=== PATIENT | female | born 1975 | race Caucasian/White ===

== ENCOUNTER 2016-09-03 10:32 | Emergency (ER) | payer BC ==
[2016-09-03 10:40] VITALS: BP 116/72
--- NOTE | 2016-09-03 10:51 | UC ---
Eye Complaint HPI - HPI Summary HPI Summary: patient has had an itchy red eye for the past week, she had been using allergy drops and medication without relief. left eye is goopy - History of Current Complaint Chief Complaint: UCEye Stated Complaint: EYE COMPLAINT,ALLERGIES Time Seen by Provider: 09/03/16 10:38 Hx Obtained From: Patient Hx Last Menstrual Period: 08/09/16 ?: No Onset/Duration: Sudden Onset, Lasting Weeks Timing: Constant Severity Initially: Mild Severity Currently: Moderate Location of Injury: Conjunctiva, Sclera Character: Foreign Body Sensation Associated Signs And Symptoms: Positive: Drainage (Purulent) - Allergies/Home Medications Allergies/Adverse Reactions: Allergies Allergy/AdvReac Type Severity Reaction Status Date / Time Phenobarbital AdvReac See Comment Verified 09/03/16 10:50 Sulfa Antibiotics AdvReac See Comment Verified 09/03/16 10:50 PMH/Surg Hx/FS Hx/Imm Hx - Surgical History Surgical History: None - Family History Known Family History: Positive: Hypertension - Social History Alcohol Use: Occasionally Substance Use Type: None Smoking Status (MU): Never Smoked Tobacco Review of Systems Constitutional: Negative Skin: Negative Eyes: Drainage, Eye Redness ENT: Negative Respiratory: Negative Cardiovascular: Negative Gastrointestinal: Negative Genitourinary: Negative Motor: Negative Neurovascular: Negative Musculoskeletal: Negative Neurological: Negative Psychological: Negative All Other Systems Reviewed And Are Negative: Yes Physical Exam Triage Information Reviewed: Yes Appearance: Well-Nourished, Ill-Appearing, Pain Distress Vital Signs: Initial Vital Signs Temp 99 F 09/03/16 10:34 Pulse 69 09/03/16 10:34 Resp 18 09/03/16 10:34 BP 116/72 09/03/16 10:34 Pulse Ox 100 09/03/16 10:34 Vital Signs Reviewed: Yes Eyes: Positive: Conjunctiva Inflamed, Discharge ENT Exam: Normal Dental Exam: Normal Neck exam: Normal Respiratory Exam: Normal Cardiovascular Exam: Normal Cardiovascular: Positive: RRR, No Murmur, Pulses Normal Abdominal Exam: Normal Abdomen Description: Positive: Nontender, No Organomegaly, Soft Bowel Sounds: Positive: Present Musculoskeletal Exam: Normal Neurological Exam: Normal Psychological Exam: Normal Skin Exam: Normal Eye Complaint Course/Dx - Course Course Of Treatment: hx obtained, exam performed ,meds reviewed, treated for conjunctivitis - Differential Dx/Diagnosis Differential Diagnosis/HQI/PQRI: Conjunctivitis, Keratitis, Uveitis Provider Diagnoses: left eye conjunctivitis Discharge - Discharge Plan Condition: Stable Disposition: HOME Patient Education Materials: Conjunctivitis (ED) Additional Instructions: 1. use the medication as prescribed. 2. Warm compresses as needed to the eyes
== END 2016-09-03 11:10 | disposition home or self-care (01) ==
LOC: UCCORT 10:32
DX: H10.9 Unspecified conjunctivitis (principal)
CPT/HCPCS: 99202; G0463

== ENCOUNTER 2018-02-28 21:01 | Emergency (ER) | payer BC ==
[2018-02-28 21:18] VITALS: BP 112/69
[2018-02-28] MEDS ORDERED: Albuterol HFA INHALER* 8 gm MDI INH ONE (21:36)
[2018-02-28] MEDS ORDERED: Benzonatate CAP* 100 MG PO ONE (21:37)
--- NOTE | 2018-02-28 21:38 | UC ---
Respiratory Complaint HPI - HPI Summary HPI Summary: Patient is a 42-year-old female with a cough timesone week. she denies any postnasal drip. She denies any fever or chills. She denies any chest pain or shortness of breath. She states she has had bronchitis and walking pneumonia in the past. She denies any headache. She denies any myalgias. She denies any runny nose. - History of Current Complaint Chief Complaint: UCGeneralIllness Stated Complaint: COUGH Time Seen by Provider: 02/28/18 21:10 Hx Obtained From: Patient Hx Last Menstrual Period: 02/13/18 Onset/Duration: Gradual Onset, Lasting Days Timing: Constant Severity Initially: Mild Severity Currently: Moderate Pain Intensity: 0 Pain Scale Used: 0-10 Numeric Character: Cough: Nonproductive Aggravating Factors: Exertion, Deep Breaths Alleviating Factors: Nothing Associated Signs And Symptoms: Negative: Dyspnea, Fever, Chills, Pleuritic Chest Pain, Wheezing, Hemoptysis, Dizziness, Calf Pain, Calf Swelling, Edema, URI, Nasal Congestion, Hoarseness - Allergies/Home Medications Allergies/Adverse Reactions: Allergies Allergy/AdvReac Type Severity Reaction Status Date / Time phenobarbital AdvReac very Verified 02/28/18 21:13 sleepy, confused Sulfa (Sulfonamide AdvReac very Verified 02/28/18 21:13 Antibiotics) sleepy, confused Home Medications: Home Medications Loratadine/Pseudoephedrine [Claritin-D 24 Hour 10-240 mg] 1 tab PO DAILY PRN [History Confirmed 02/28/18] PMH/Surg Hx/FS Hx/Imm Hx Previously Healthy: Yes Respiratory History: Bronchitis, Pneumonia - Surgical History Surgical History: None - Family History Known Family History: Positive: Hypertension - Social History Alcohol Use: Occasionally Substance Use Type: None Smoking Status (MU): Never Smoked Tobacco Review of Systems All Other Systems Reviewed And Are Negative: Yes Constitutional: Positive: Negative Skin: Positive: Negative Eyes: Positive: Negative ENT: Negative: Nasal Discharge, Sinus Congestion, Sinus Pain/Tenderness Respiratory: Positive: Cough Cardiovascular: Positive: Negative Gastrointestinal: Positive: Negative Genitourinary: Positive: Negative Motor: Positive: Negative Neurovascular: Positive: Negative Musculoskeletal: Positive: Negative Neurological: Positive: Negative Psychological: Positive: Negative Physical Exam Triage Information Reviewed: Yes Appearance: Well-Appearing, No Pain Distress, Well-Nourished Vital Signs: Initial Vital Signs Temp 97.9 F 02/28/18 21:15 Pulse 78 02/28/18 21:15 Resp 16 02/28/18 21:15 BP 112/69 02/28/18 21:15 Pulse Ox 100 02/28/18 21:15 Vital Signs Reviewed: Yes Eyes: Positive: Conjunctiva Clear ENT: Positive: Hearing grossly normal. Negative: Pharyngeal erythema, Nasal congestion, Nasal drainage, Tonsillar swelling, Tonsillar exudate, Trismus, Muffled voice, Hoarse voice Neck: Positive: Supple, Nontender, No Lymphadenopathy Respiratory: Positive: Normal breath sounds, No respiratory distress, Wheezing - with foreced expiration, Other: - bronchospastic cough Cardiovascular: Positive: RRR Musculoskeletal: Positive: ROM Intact, No Edema Neurological: Positive: Alert Psychological Exam: Normal Skin Exam: Normal UC Diagnostic Evaluation - Laboratory O2 Sat by Pulse Oximetry: 100 - normal/not hypoxic Respiratory Course/Dx - Differential Dx/Diagnosis Provider Diagnosis: Bronchospasm with bronchitis, acute Discharge - Sign-Out/Discharge Documenting (check all that apply): Patient Departure All imaging exams completed and their final reports reviewed: No Studies - Discharge Plan Condition: Stable Disposition: HOME Prescriptions: Benzonatate CAP* [Tessalon CAP*] 100 - 200 mg PO TID PRN #28 cap PRN Reason: Cough predniSONE [Deltasone 20 MG TAB] 40 mg PO DAILY #10 tab Patient Education Materials: Bronchospasm (ED), How to Use a Metered-Dose Inhaler and a Spacer (ED) Referrals: Harrison Adams DO [Primary Care Provider] - 4 Days (if not better) Additional Instructions: recheck for new or worsening symptoms - Billing Disposition and Condition Condition: STABLE Disposition: Home
== END 2018-02-28 21:59 | disposition home or self-care (01) ==
LOC: UCCORT 21:01
DX: J20.9 Acute bronchitis, unspecified (principal); Z88.8 Allergy status to other drugs, medicaments and biological substances; Z88.2 Allergy status to sulfonamides
CPT/HCPCS: 99213; A9270-GY; G0463